=== PATIENT | female | born 1990 | race Caucasian/White ===

== ENCOUNTER 2017-11-10 11:21 | Emergency (ER) | payer OTHER ==
[2017-11-10] MEDS: IBUPROFEN 800 MG TAB PO (11:42)
== END 2017-11-10 13:17 | disposition home or self-care (01) ==
LOC: M ED 11:21
DX: S80.12XA Contusion of left lower leg, initial encounter (principal); W21.07XA Struck by softball, initial encounter; Y92.830 Public park as the place of occurrence of the external cause
CPT/HCPCS: 73590

== ENCOUNTER 2018-03-19 18:46 | Emergency (ER) | payer OTHER | END 2018-03-19 21:10 | disposition home or self-care (01) | LOC: M ED 18:46 | DX: Z04.1 Encounter for examination and observation following transport accident (principal); V43.52XA Car driver injured in collision with other type car in traffic accident, initial encounter; Y92.410 Unspecified street and highway as the place of occurrence of the external cause; Z98.84 Bariatric surgery status; Z3A.01 Less than 8 weeks gestation of pregnancy; Z79.899 Other long term (current) drug therapy | CPT/HCPCS: 76801 ==

== ENCOUNTER → 2018-04-18 | Outpatient (CLI) | payer OTHER ==
[2018-04-18 17:51] LABS: BASO % 0.4 % (0.0-1.0); EOS # 0.1 10^3/uL (0.0-0.50); HEMATOCRIT 34.8 % (36.0-47.0); HEMOGLOBIN 11.3 g/dl (12.0-15.5); IMMATURE GRANULOCYTE % 0.3 % (0-3.0); LYMPH % 18.2 % (24.0-44.0); MEAN CORPUSCULAR HEMOGLOBIN 27.6 pg (27.0-33.0); MEAN CORPUSCULAR HGB CONC 32.5 g/dl (32.0-36.5); MEAN CORPUSCULAR VOLUME 85.1 fl (80.0-96.0); MONO # 0.6 10^3/uL (0.0-0.8); MONO % 5.6 % (0.0-5.0); NEUTROPHILS # 8.2 10^3/uL (1.8-7.7); NEUTROPHILS % 74.5 % (36.0-66.0); PLATELET COUNT, AUTOMATED 294 10^3/uL (150-450); RED BLOOD COUNT 4.09 10^6/uL (4.00-5.40); RED CELL DISTRIBUTION WIDTH 14.1 % (11.5-14.5)
[2018-04-18 22:04] LABS: CHLAMYDIA DNA AMPLIFICATION NEGATIVE (NEGATIVE); GC DNA AMPLIFICATION NEGATIVE (NEGATIVE)
[2018-04-19 10:28] LABS: HBsAg Prenatal NEGATIVE (NEGATIVE); HIV 1&2 SCREEN CENTAUR NEGATIVE (NEGATIVE); RUBELLA IgG QUALITATIVE IMMUNE (IMMUNE)
[2018-04-19 10:28] LABS: HEPATITIS C VIRUS ABY INDEX 0.1 INDEX (<0.8)
== END ==
LOC: M SMT 15:45
DX: Z36.89 Encounter for other specified antenatal screening (principal)
CPT/HCPCS: 86762

== ENCOUNTER → 2018-06-14 | Outpatient (CLI) | payer OTHER ==
[~2018-06-14] MED LIST: CALCTAB89 PO; IBUP80TA PO; PRENCHW PO; VITA500T53 PO
--- NOTE | 2018-06-14 20:42 | REP ---
Obstetric sonography: History: Supervision of for anatomy. Findings: Scanning through the gravid uterus demonstrates a viable single intrauterine gestation in a variable lie. motion is observed and heart rate is recorder 139 beats per minute. A posterior grade 1 placenta is seen without evidence of previa or abruption. Amniotic fluid is subjectively normal. Closed cervical length measures 4.2 cm. No extrauterine abnormality is observed. There has been appropriate interval growth. No anomaly is seen. The following anatomic structures are identified and felt to be sonographically unremarkable: cranium, choroid plexus, cavum, cerebellum posterior fossa, face and profile, lungs, four-chamber heart with left and right ventricular outflow tract views, diaphragm, left-sided stomach, abdominal wall cord insertion, three-vessel umbilical cord, kidneys and bladder, spine, upper and lower extremities. Biometry chart: BPD 3.7 cm 17 weeks 2 days Head circumference 15.2 cm 18 weeks 2 days Abdominal circumference 13.1 cm 18 weeks 4 days Femur length 2.8 cm 18 weeks 4 days humeral length 2.7 cm 18 weeks 4 days HC/AC ratio normal 1.16 cephalic index 0.64 (0.70-0.86), estimated weight 244 grams, 0 pounds 8 ounces, 20th percentile for 19 weeks 0 days. Impression: Viable single intrauterine gestation of 18 weeks 2 days by today's composite criteria. Expected gestational age estimate based on prior sonography is 19 weeks 0 days. ELIDA by prior sonography November 08, 2018. anatomic survey is felt to be complete. Electronically Signed by Gerry Wan MD 06/15/2018 08:15 A
== END ==
LOC: M RAD 15:35
PROVIDERS: ATTEND Advanced Practice Midwife
DX: Z36.9 Encounter for antenatal screening, unspecified (principal); Z3A.18 18 weeks gestation of pregnancy

== ENCOUNTER → 2018-08-08 | Outpatient (CLI) | payer OTHER ==
[2018-08-08 18:50] LABS: HEMATOCRIT 34.6 % (36.0-47.0); MEAN CORPUSCULAR HEMOGLOBIN 28.1 pg (27.0-33.0); MEAN CORPUSCULAR HGB CONC 31.8 g/dl (32.0-36.5); MEAN CORPUSCULAR VOLUME 88.3 fl (80.0-96.0); PLATELET COUNT, AUTOMATED 265 10^3/uL (150-450); RED BLOOD COUNT 3.92 10^6/uL (4.00-5.40); WHITE BLOOD COUNT 11.1 10^3/uL (4.0-10.0)
== END ==
LOC: M SMT 15:03
PROVIDERS: ATTEND Obstetrics & Gynecology
DX: Z36.89 Encounter for other specified antenatal screening (principal)

== ENCOUNTER → 2018-10-11 | Outpatient (REF) | payer OTHER ==
[~2018-10-11] MED LIST changes: +VITA500T17 PO; -VITA500T53 PO
== END ==
LOC: M LAB REF 17:12
PROVIDERS: ATTEND Obstetrics & Gynecology
DX: Z34.83 Encounter for supervision of other normal pregnancy, third trimester (principal); Z3A.00 Weeks of gestation of pregnancy not specified

== ENCOUNTER 2018-10-17 15:19 | Outpatient (CLI) | payer OTHER ==
[~2018-10-17] VITALS: Ht 167.6 cm; Wt 111.6 kg
[2018-10-17 15:36] VITALS: BP 110/69
[2018-10-17 15:45] VITALS: BP 93/59
[2018-10-17] MEDS ORDERED: LR 1,000 ML IV ONE (16:00)
[2018-10-17 16:20] VITALS: BP 100/54
[2018-10-17 16:31] LABS: HEMATOCRIT 32.9 % (36.0-47.0); HEMOGLOBIN 10.5 g/dl (12.0-15.5); MEAN CORPUSCULAR HEMOGLOBIN 26.1 pg (27.0-33.0); MEAN CORPUSCULAR HGB CONC 31.9 g/dl (32.0-36.5); MEAN CORPUSCULAR VOLUME 81.6 fl (80.0-96.0); PLATELET COUNT, AUTOMATED 292 10^3/uL (150-450); RED BLOOD COUNT 4.03 10^6/uL (4.00-5.40); WHITE BLOOD COUNT 13.9 10^3/uL (4.0-10.0)
[2018-10-17 16:41] LABS: APPEARANCE, URINE HAZY (CLEAR); BACTERIA, URINE AUTO 1+ (NEGATIVE); BILIRUBIN, URINE AUTO NEGATIVE (NEGATIVE); BLOOD, URINE BLOOD NEGATIVE (NEGATIVE); COLOR, URINE YELLOW (YELLOW); GLUCOSE, URINE (UA) AUTO NEGATIVE (NEGATIVE); KETONE, URINE AUTO NEGATIVE (NEGATIVE); LEUKOCYTE ESTERASE, URINE AUTO NEGATIVE (NEGATIVE); MUCUS, URINE SMALL (NEGATIVE); NITRITE, URINE AUTO NEGATIVE (NEGATIVE); PROTEIN, URINE AUTO NEGATIVE (NEGATIVE); RBC, URINE AUTO 0 /HPF (0-3); SQUAMOUS EPITHELIAL CELL UR AU 6 /HPF (0-6); UROBILINOGEN, URINE AUTO 0.2 mg/dL (0.0-2.0); WBC, URINE AUTO 0 /HPF (0-3)
[2018-10-17 16:55] LABS: ALBUMIN 2.6 GM/DL (3.2-5.2); ALT/SGPT 15 U/L (12-78); AMYLASE 40 U/L (25-115); BILIRUBIN,TOTAL 0.2 MG/DL (0.2-1.0); BLOOD UREA NITROGEN 12 MG/DL (7-18); CALCIUM LEVEL 8.2 MG/DL (8.5-10.1); CARBON DIOXIDE LEVEL 23 MEQ/L (21-32); CHLORIDE LEVEL 107 MEQ/L (98-107); CREATININE FOR GFR 0.59 MG/DL (0.55-1.30); GLOMERULAR FILTRATION RATE > 60.0 (>60); GLUCOSE, FASTING 78 MG/DL (70-100); LIPASE 162 U/L (73-393); POTASSIUM SERUM 4.2 MEQ/L (3.5-5.1); SODIUM LEVEL 139 MEQ/L (136-145); TOTAL PROTEIN 6.5 GM/DL (6.4-8.2)
[2018-10-17 17:05] VITALS: BP 101/51
[2018-10-17 18:06] VITALS: BP 106/54
[2018-10-17 18:16] VITALS: BP 112/58
--- NOTE | 2018-10-17 18:59 | NUR ---
L&D triage 28-year-old at 36+6 weeks gestation. Presents complaining of shortness of breath and not feeling well. Denies any chest pain, fever/chills. Reports regular movement. Denies vaginal bleeding, loss of fluid, or uterine contractions. course uncomplicated other than mild anemia Obstetric history significant for shoulder dystocia with clavicular fracture at 42 weeks, LGA baby, 10 lbs. 13 oz. PMH: Anemia SH: gastric sleeve Meds: PNV All: Tylenol, Hydrocodone. 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 H: RRR no m/g/r L: CTA b/l no w/c/r/r Abd: soft,nt,nd. FH > EGA Ext: no c/c/e US,owusu: cephalic, MVP 8.2cm A/P: 28yo at 36+6 weeks with mild idiopathic polyhydramnios. -Continue with antepartum testing as outpatient. -Continue Fe supplementation -Recommended IOL at 39 weeks. Scheduled for 11/01/18. -Routine third trimester precautions reviewed -F/u in office as scheduled. Avis Self DO
== END 2018-10-17 18:43 | disposition home or self-care (01) ==
LOC: M LDO 15:19
PROVIDERS: ATTEND Obstetrics & Gynecology
DX: O26.893 Other specified pregnancy related conditions, third trimester (principal); R06.02 Shortness of breath; O40.3XX2 Polyhydramnios, third trimester, fetus 2; Z3A.36 36 weeks gestation of pregnancy
CPT/HCPCS: 59025; 80053; 81001; 82150; 83690; 85027; 87088; 87186; G0378; G0463

== ENCOUNTER 2018-11-01 15:00 | Inpatient (IN) | payer OTHER ==
[~2018-11-01] VITALS: Ht 170.2 cm; Wt 113.0 kg
[2018-11-01] VITALS (17 sets, daily range): BP systolic 117–154; BP diastolic 61–99
[2018-11-01] MEDS ORDERED: miSOPROStol 50 MCG 1/2 TAB (S0191) PO ONE (15:45)
[2018-11-01 16:15] LABS: HEMATOCRIT 31.3 % (36.0-47.0); HEMOGLOBIN 9.9 g/dl (12.0-15.5); MEAN CORPUSCULAR HEMOGLOBIN 25.6 pg (27.0-33.0); MEAN CORPUSCULAR HGB CONC 31.6 g/dl (32.0-36.5); MEAN CORPUSCULAR VOLUME 80.9 fl (80.0-96.0); PLATELET COUNT, AUTOMATED 265 10^3/uL (150-450); RED BLOOD COUNT 3.87 10^6/uL (4.00-5.40); WHITE BLOOD COUNT 10.8 10^3/uL (4.0-10.0)
[2018-11-01] MEDS ORDERED: LR 1,000 ML IV SCH (16:26)
[2018-11-01] MEDS ORDERED: PENICILLIN G POTASSIUM IV 5 MU in D5W MINI-BAG PLUS 100 ML IV STA (16:26)
[2018-11-01] MEDS ORDERED: OXYTOCIN DRIP 30 UNITS in APPROPRIATE DILUENT 1 EA IV SCH (16:30)
--- NOTE | 2018-11-01 18:12 | HPE ---
DATE OF ADMISSION: 11/01/2018 HISTORY OF PRESENT ILLNESS: Patient is a 28-year-old female who is a 2, para 1-0-0-1 at 39 weeks gestation with an estimated delivery date (ELIDA) of 11/08/2018, based off of her first trimester ultrasound. She initiated care in her first trimester with [facility]. Her has been complicated with by a history of having a gastric sleeve, polyhydramnios, and a history of baby born with a shoulder dystocia. Patient presents to labor and delivery for an elective induction of labor related to polyhydramnios. Patient reports occasional contractions. She denies leaking of fluid, vaginal bleeding. Reports active movement. ALLERGIES: VICODIN. CURRENT MEDICATIONS: - vitamins - calcium MEDICAL HISTORY: Varicella as a child. SURGICAL HISTORY: 1. Gastric sleeve. 2. Abscess removal. FAMILY HISTORY: Grandmother with heart disease, thyroid dysfunction and asthma. Grandfather had heart murmur and open heart surgery. SOCIAL HISTORY: Patient is . She denies being a smoker. She denies alcohol or illicit drug use during or prior to . She denies any history of any sexually transmitted infections. PAST PREGNANCIES: In June 2017, patient delivered a live male at 41 weeks and 6 days gestation via spontaneous vaginal delivery, weighing 10 pounds 13 ounces, complicated by a shoulder dystocia. LABORATORIES: Blood type is A positive, with a negative antibody screen. Her hemoglobin, hematocrit and platelet level on 04/18/2018 was 11.3 and 34.8 and platelets at 294. Rubella immune. VDRL is nonreactive. Urine is no growth. Hepatitis B surface antigen is negative. HIV is negative. Hepatitis C is nonreactive. Gonorrhea and chlamydia are both negative. Her hemoglobin and hematocrit on 08/08/2018 was 11 and 24.6 with platelets at 265. Her group B Streptococcus (GBS) is positive. HEART RATE: 130 beats per minute, moderate variability, positive accelerations, no decelerations. Contractions are occasional. VITAL SIGNS: Blood pressure 118/61, heart rate 82, respiratory rate 18, temperature 98.2. VAGINAL EXAMINATION: Cervix 1 cm dilated, 75% effaced. Baby is ballotable and her cervix is posterior, soft, with no show. PHYSICAL ASSESSMENT: GENERAL: Alert and oriented times three. RESPIRATORY: Regular rate with no use of accessory muscles. ABDOMEN: Gravid and nontender to palpation. Fetus is cephalic presentation via Iam's and via vaginal exam. LOWER EXTREMITIES: Generalized edema with no pitting edema. No clonus noted. ASSESSMENT: Intrauterine at 39 weeks gestation, polyhydramnios, Category I FHR tracing, elective induction of labor. PLAN: Admit to labor and delivery. Out of bed ad emely. Clear liquid diet. Saline lock to be started with labs to be obtained per unit protocol. Will plan on inserting a Archipelagos Dumont bulb with 50 mL intrauterine and 40 mL vaginal. Will start Pitocin per order for induction. Anesthesia consult per patient's request. Prior to epidural, start 800 mL intravenous (IV) bolus of lactated Ringer's. Anticipate cervical change and spontaneous vaginal delivery. MTDD
[2018-11-01] MEDS: PENICILLIN G POTASSIUM IV 2.5 MU in APPROPRIATE DILUENT 1 EA IV SCH (21:00)
--- NOTE | 2018-11-01 21:08 | IPNPDOC ---
Obstetrical Progress Note Date of Service November 01, 2018 Subjective Patient reports feeling contractions. Objective Vital Signs Date Time Temp Pulse Resp B/P (MAP) Pulse Ox O2 Delivery O2 Flow Rate FiO2 11/01/18 18:05 98.3 76 18 137/85 (102) Assessment Heart Rate (FHR): 130 Variability: Moderate Accelerations: Positive Decelerations: None Heart Rate Tracing: Category I Tocometer Contractions: Yes Frequency: regular Sterile Vaginal Examination Dilation: 4 cm Effacement (%): other (75) Station: -3 Cervical Consistency: Soft Cervical Position: Middle Postion/Presentation: Cephalic presentation Assessment and Plan Age: 28 : 2 Term: 1 Pre-term: 0 Abortions: 0 Livin EGA at Admission: 39.0 Status: Reassuring Group B Streptococcus: Positive Anticipate: Vaginal Delivery Additional Comments AROM to a large amount of clear fluid. Pitocin is a 2 mu/min. ANILA ALCARAZ CNM November 01, 2018 21:08
[2018-11-01] MEDS ORDERED: FENTANYL 2MCG/ML ROPIVACAINE 0.2% IN 0.9% NACL 100ML IVBAG As Ordered ONE (23:12)
[2018-11-01] MEDS ORDERED: ONDANSETRON 4MG/2ML VIAL (J2405) IV PRN (23:20)
[2018-11-01] MEDS ORDERED: FENTANYL/ROPIVACAINE/NACL BAG 100 ML EPIDURAL SCH (23:20)
[2018-11-01] MEDS ORDERED: LACTATED RINGER'S 1000 ML IV PRN (23:20)
[2018-11-01] MEDS ORDERED: diphenhydrAMINE INJ 50MG/ML VIAL (J1200) IV PRN (23:20)
[2018-11-01] MEDS ORDERED: REFRIGERATOR IV KEYS XX PRN (23:20)
[2018-11-01] MEDS ORDERED: ePHEDrine SULFATE 25 MG/5 ML(5MG/ML) SYRINGE IV PRN (23:20)
[2018-11-01] MEDS ORDERED: NALOXONE INJ 0.4 MG/1 ML VIAL (J2310) IV PRN (23:20)
[2018-11-01] MEDS ORDERED: EPIDURAL/PCA KEYS XX PRN (23:20)
[2018-11-01] MEDS ORDERED: EPIDURAL COMMENT XX SCH (23:20)
[2018-11-02] VITALS (9 sets, daily range): BP systolic 108–141; BP diastolic 55–102
[2018-11-02] MEDS: PENICILLIN G POTASSIUM IV 2.5 MU in APPROPRIATE DILUENT 1 EA IV SCH (01:03)
[2018-11-02] MEDS ORDERED: OXYTOCIN INJ 10 UNITS/ML VIAL (J2590) IM ONE (03:00)
[2018-11-02] MEDS ORDERED: DOCUSATE SODIUM 100 MG CAP PO PRN (03:00)
[2018-11-02] MEDS ORDERED: MEASLES,MUMPS,RUBELLA VACCINE INJ (MMR-II) (90707) SC SCH (03:00)
[2018-11-02] MEDS ORDERED: DIBUCAINE 1% OINTMENT 30GM TOP PRN (03:00)
[2018-11-02] MEDS ORDERED: ACETAMINOPHEN TAB 650MG DOSE (2X325MG) PO PRN (03:00)
[2018-11-02] MEDS ORDERED: METHYLERGONOVINE MALEATE 0.2 MG TAB PO PRN (03:00)
[2018-11-02] MEDS ORDERED: IBUPROFEN 800 MG TAB PO PRN (03:00)
[2018-11-02] MEDS ORDERED: RHOGAM 300 MCG (1500 IU) INJ (J2790) IM SCH (03:00)
[2018-11-02] MEDS ORDERED: IBUPROFEN 600 MG TAB PO PRN (03:00)
[2018-11-02] MEDS ORDERED: ACETAMINOPHEN 500 MG TAB PO PRN (03:00)
[2018-11-02] MEDS: PRENATAL VITAMINS CHEWABLE TABLET PO SCH (09:16)
[2018-11-03 05:56] VITALS: BP 101/55
[2018-11-03] MEDS: PRENATAL VITAMINS CHEWABLE TABLET PO SCH (08:15)
--- NOTE | 2018-11-03 10:23 | NUR ---
Day 1 Status post , uncomplicated Subjective Pain is well controlled. Lochia decreasing and minimal. Voiding spontaneously. Tolerating a regular diet. Ambulating without any assistance. Denies any subjective fever/chills/nausea/vomiting/headache/visual changes/shortness of breath/chest pain. Breast feeding. Desires discharge to home today Objective Vitals: Normotensive, normal heart rate, afebrile, adequate urine output. Heart: regular, rate, and rhythm. no murmurs/gallops/rubs Lungs: clear to auscultation bilaterally, no wheezes/crackles/rales/ronchi Abd: soft, nontender, nondistended, uterine fundus is 2cm below umbilicus and firm Ext: no significant edema, nontender, negative Karla's bilaterally. Assessment/Plan: day 1. Recovering well. Hemodynamically stable, afebrile, good pain control. -Routine care -Discharge to home today if lavatory attendant discharges baby -Routine infectious, fever, pain, and bleeding precautions reviewed Monico Hawley.O., F.A.C.O.G.
[2018-11-03] MEDS ORDERED: IBUP80TA PO (10:45)
--- NOTE | 2018-11-03 21:35 | DN ---
DELIVERY DATE: 11/02/2018 at 0208 STATUS: Delivered by spontaneous vaginal delivery. PROVIDER: Naima Kim CNM, KIARA ANESTHESIA: Epidural. ESTIMATED BLOOD LOSS: 250. FINDINGS: Female, weighing 9 pounds 9 ounces, 4320 grams. scores 9 and 9. Nuchal cord times one, tight, and cord also around the arm. Macrosomia. Polyhydramnios. Patient is a 28-year-old female who is now a 2, para 2-0-0-2 at 39 weeks and 1 day gestation who presented to labor and delivery yesterday, on 11/01/2018, for an induction of labor. The patient received an epidural for pain management. She progressed to fully dilated at 0154 and pushed to a living female in the low occiput anterior (SHIMA) position, restitution to low occiput tranverse (LOT). The nuchal cord was noted. The anterior shoulder delivered with ease, and the corpus immediately followed. The baby was placed on the maternal abdomen skin to skin, active and crying with stimulation. The cord was clamped times two after 3 minutes and cut by the patient's Clinical Laboratory Assistant. The placenta delivered spontaneously and intact at 0219. Uterine hemostasis was achieved via intramuscular (IM) Pitocin 10 units, due to patient's intravenous (IV) site infiltrating, and fundal massage. The vagina, perineum, and cervix were all inspected and found to be intact. The mother plans to breast-feed, and she is naming her daughter Leon. Both mother and baby are in stable condition. All counts of instruments and sponges are correct.
== END 2018-11-03 13:45 | disposition home or self-care (01) | DRG 807 ==
LOC: M LDI 15:00 → M OBS 11-02 05:42
PROVIDERS: ADMIT Advanced Practice Midwife; ATTEND Advanced Practice Midwife
PROC: 3E0DXGC Introduction of Other Therapeutic Substance into Mouth and Pharynx, External Approach (ICD-10-PCS; 2018-11-01)
PROC: 10E0XZZ Delivery of Products of Conception, External Approach (ICD-10-PCS; principal; 2018-11-02)
DX: O40.3XX0 Polyhydramnios, third trimester, not applicable or unspecified (principal); Z37.0 Single live birth; Z3A.39 39 weeks gestation of pregnancy

== ENCOUNTER → 2019-02-20 | Outpatient (REF) | payer OTHER | LOC: M LAB REF 13:23 | PROVIDERS: ATTEND Advanced Practice Midwife | DX: Z12.4 Encounter for screening for malignant neoplasm of cervix (principal) ==

== ENCOUNTER → 2019-06-02 | Outpatient (CLI) | payer OTHER ==
[2019-06-02 18:50] LABS: BASO % 0.6 % (0.0-1.0); EOS # 0.2 10^3/uL (0.0-0.5); EOS % 2.3 % (0.0-3.0); HEMATOCRIT 37.4 % (36.0-47.0); HEMOGLOBIN 11.6 g/dl (12.0-15.5); LYMPH # 1.9 10^3/uL (1.5-5.0); LYMPH % 26.9 % (24.0-44.0); MEAN CORPUSCULAR HEMOGLOBIN 25.5 pg (27.0-33.0); MEAN CORPUSCULAR VOLUME 82.2 fl (80.0-96.0); MONO # 0.5 10^3/uL (0.0-0.8); MONO % 7.3 % (0.0-5.0); NEUTROPHILS # 4.4 10^3/uL (1.5-8.5); NEUTROPHILS % 62.6 % (36.0-66.0); PLATELET COUNT, AUTOMATED 314 10^3/uL (150-450); RED BLOOD COUNT 4.55 10^6/uL (4.00-5.40); WHITE BLOOD COUNT 7.1 10^3/uL (4.0-10.0)
[2019-06-02 20:31] LABS: CHLAMYDIA DNA AMPLIFICATION NEGATIVE (NEGATIVE); GC DNA AMPLIFICATION NEGATIVE (NEGATIVE)
[2019-06-03 10:35] LABS: HIV 1&2 SCREEN CENTAUR NEGATIVE (NEGATIVE); RUBELLA IgG QUALITATIVE IMMUNE (IMMUNE)
[2019-06-06 10:14] LABS: HEPATITIS C VIRUS ABY INDEX 0.2 INDEX (<0.8)
== END ==
LOC: M PLALAB 14:47
PROVIDERS: ATTEND Obstetrics & Gynecology
DX: Z34.91 Encounter for supervision of normal pregnancy, unspecified, first trimester (principal); Z3A.00 Weeks of gestation of pregnancy not specified

== ENCOUNTER → 2019-08-06 | Outpatient (CLI) | payer OTHER ==
--- NOTE | 2019-08-06 17:56 | REP ---
Obstetric sonography: History: Supervision of . Findings: Scanning through the gravid uterus demonstrates a viable single intrauterine gestation in a variable lie. motion is observed and heart rate is recorded at 152 beats per minute. An anterior grade 1 placenta is seen without evidence of previa or abruption. Amniotic fluid is subjectively normal. Closed cervical length is 3.1 cm. No extrauterine abnormalities observed. No anomaly is seen. Four-chamber heart views less than optimally seen due to early gestational age and position. The following additional anatomic structures are identified and felt to be sonographically unremarkable today: cranium, choroid plexus, cavum, cerebellum and posterior fossa, nuchal fold, face in profile, left and right ventricular outflow tract views, diaphragm, left-sided stomach, abdominal wall cord insertion, three-vessel cord, kidneys and bladder, spine, upper and lower extremities. Biometry chart: BPD 3.6 cm = 17 weeks 0 days HC 13.8 cm = 17 weeks 2 days AC 12.0 cm = 17 weeks 5 days FL 2.5 cm = 17 weeks 4 days HL 2.4 cm = 17 weeks 3 days HC/AC ratio normal 1.16. Cephalic index normal 0.71. Estimated weight 199 grams, 0 pounds 7 ounces, 53rd percentile for 17 weeks 3 days. Impression: Viable single intrauterine gestation at 17 weeks 3 days by today's composite sonographic criteria. ELIDA by today's sonography January 11, 2020. Four-chamber heart views less than optimally achieved. anatomic survey is otherwise complete.
== END ==
LOC: M WHC 14:59
PROVIDERS: ATTEND Advanced Practice Midwife
DX: Z34.92 Encounter for supervision of normal pregnancy, unspecified, second trimester (principal); Z3A.17 17 weeks gestation of pregnancy

== ENCOUNTER → 2019-09-11 | Outpatient (CLI) | payer OTHER ==
--- NOTE | 2019-09-11 18:57 | REP ---
Obstetric sonography: History: Supervision of , follow-up anatomy. Comparison study August 06, 2019. Findings: Scanning through the gravid uterus demonstrates a single living intrauterine gestation in a cephalic lie. motion is observed and heart rate is recorded at 146 beats per minute. An anterior placenta is seen grade 1 without evidence of previa or abruption. Amniotic fluid is subjectively normal. Closed cervical length is 3.5 cm. No extrauterine abnormalities observed. There has been appropriate interval growth. Exam quality inhibited to some degree by maternal body habitus. Four-chamber heart visualization is again less than optimal due to position. The following additional anatomic structures were again identified and felt to be unremarkable: cranium, choroid plexus, cerebellum and posterior fossa, nuchal fold face and profile, left and right ventricular cardiac outflow tract views, diaphragm, left-sided stomach, abdominal wall cord insertion, three-vessel cord, kidneys and bladder, spine, lower extremities. Biometry chart: BPD 4.9 cm = 20 weeks 5 days HC 19.8 cm = 22 weeks 0 days AC 18.8 cm = 23 weeks 4 days FL 3.8 cm = 22 weeks 0 days HC/AC ratio normal 1.06. Cephalic index normal 0.65. Estimated weight 529 grams, 1 pound 2 ounces, 52nd percentile for 22 weeks 4 days. Impression: Viable single intrauterine gestation at 21 weeks 6 days by today's composite criteria. Expected gestational age estimate based on prior sonography is 22 weeks 4 days. ELIDA by prior sonography January 11, 2020. Four-chamber heart view is less than optimally seen again due to position.
== END ==
LOC: M WHC 14:34
PROVIDERS: ATTEND Advanced Practice Midwife
DX: Z34.92 Encounter for supervision of normal pregnancy, unspecified, second trimester (principal)

== ENCOUNTER → 2019-10-01 | Outpatient (REF) | payer OTHER ==
[2019-10-01 15:11] LABS: HEMATOCRIT 33.3 % (36.0-47.0); HEMOGLOBIN 10.7 g/dl (12.0-15.5); MEAN CORPUSCULAR HEMOGLOBIN 26.1 pg (27.0-33.0); MEAN CORPUSCULAR HGB CONC 32.1 g/dl (32.0-36.5); MEAN CORPUSCULAR VOLUME 81.2 fl (80.0-96.0); PLATELET COUNT, AUTOMATED 295 10^3/uL (150-450); WHITE BLOOD COUNT 12.2 10^3/uL (4.0-10.0)
== END ==
LOC: M PLALAB 14:25
PROVIDERS: ATTEND Advanced Practice Midwife
DX: Z34.92 Encounter for supervision of normal pregnancy, unspecified, second trimester (principal)

== ENCOUNTER → 2019-10-09 | Outpatient (CLI) | payer OTHER ==
--- NOTE | 2019-10-09 18:59 | REP ---
Clinical: Anatomical evaluation. Comparison: 09/11/2019 . Findings: Examination demonstrates a single live intrauterine in cephalic presentation. motion is identified by technologist. Placenta is noted anterior and grade I without evidence for placenta previa or abruption. Amniotic fluid volume is normal. Cervix measures 3.7 cm in length and appears closed. No evidence for nuchal cord. Gestational age by LMP 26 weeks 4 days with ELIDA 01/11/2020 . Gestational age by current measurements 26 weeks 2 days with ELIDA 01/13/2020 . FHR equals 140 beats per minute. Estimated weight 954 grams ( 44th percentile). Anatomical assessment demonstrates normal structures including cranium, choroid plexus, cavum, cerebellum/posterior fossa, facial features, lungs, four-chamber heart/ventricular outflow tracts, diaphragm, stomach, three-vessel cord, kidneys/bladder. Impression: Single live intrauterine in cephalic presentation demonstrating appropriate estimated weight and growth. In conjunction with prior examination anatomical assessment is complete and normal.
== END ==
LOC: M WHC 09:04
PROVIDERS: ATTEND Advanced Practice Midwife
DX: Z34.92 Encounter for supervision of normal pregnancy, unspecified, second trimester (principal)

== ENCOUNTER → 2019-10-31 | Outpatient (REF) | payer OTHER | LOC: M PLALAB 10:07 | PROVIDERS: ATTEND Advanced Practice Midwife | DX: O99.843 Bariatric surgery status complicating pregnancy, third trimester (principal); Z53.9 Procedure and treatment not carried out, unspecified reason ==

== ENCOUNTER → 2019-11-19 | Outpatient (CLI) | payer OTHER ==
--- NOTE | 2019-11-19 16:09 | REP ---
Clinical: Growth evaluation. History of gestational diabetes Comparison: 10/09/2019 . Findings: Examination demonstrates a single live intrauterine in cephalic presentation. motion is identified by technologist. Placenta is noted anterior and grade I without evidence for placenta previa or abruption. Amniotic fluid volume is normal. Cervix measures 4.2 cm in length and appears closed. No evidence for nuchal cord. Gestational age by LMP 32 weeks 3 days with ELIDA 01/11/2020 . Gestational age by current measurements 33 weeks 0 days with ELIDA 01/07/2020 . FHR equals 130 beats per minute. BPD 7.9 cm 31 weeks 4 days HC 30.8 cm 34 weeks 2 days AC 30.4 cm 34 weeks 2 days FL 6.2 cm 32 weeks 2 days HL 5.8 cm 33 weeks 4 days HC/AC ratio 1.01 Estimated weight 2256 grams ( 71st percentile). Impression: Single live advanced gestation in cephalic presentation demonstrating appropriate interval growth and estimated weight. No gross abnormalities are identified.
== END ==
LOC: M WHC 14:38
PROVIDERS: ATTEND Advanced Practice Midwife
DX: O24.419 Gestational diabetes mellitus in pregnancy, unspecified control (principal)

== ENCOUNTER → 2019-12-08 | Outpatient (CLI) | payer OTHER ==
--- NOTE | 2019-12-08 15:10 | REP ---
REASON: Gestational diabetes. Multiple ultrasonographic images of the gravid uterus show a single living intrauterine gestation in the cephalic presentation. Doppler interrogation of the heart shows a heart rate of 132 beats per minute. The placenta is anterior and not low-lying. The cervix measures 3.1 cm in length and is closed. The subjective amniotic fluid volume is within normal limits. BPD 8.7 cm = 34 weeks 6 days HC 32.6 cm = 36 weeks 6 days AC 31.90 cm = 35 weeks 6 days FL 6.9 cm = 35 weeks 2 days Estimated weight is 2743 grams, which is at the 59th percentile for a 50-whhb-0-day gestational age. The calculated amniotic fluid index is 16.4 with an expected range of 7.9 to 24.9. IMPRESSION: Single living intrauterine gestation as described above with an estimated gestational age of 35 weeks 3 days via composite criteria and an estimated date of delivery of 01/09/2020 by today's exam.
== END ==
LOC: M WHC 10:48
PROVIDERS: ATTEND Advanced Practice Midwife
DX: O24.419 Gestational diabetes mellitus in pregnancy, unspecified control (principal); Z3A.35 35 weeks gestation of pregnancy

== ENCOUNTER → 2019-12-09 | Outpatient (REF) | payer OTHER | LOC: M SFHCWAGY 10:18 | PROVIDERS: ATTEND Advanced Practice Midwife | DX: O24.419 Gestational diabetes mellitus in pregnancy, unspecified control (principal) ==

== ENCOUNTER 2019-12-29 10:45 | Inpatient (IN) | payer OTHER ==
[2019-12-29] MEDS ORDERED: miSOPROStol 50 MCG 1/2 TAB (S0191) ONE ×2 (11:34→15:49)
[2019-12-29] MEDS ORDERED: metFORMIN (GLUCOPHAGE) 500 MG TAB ONE (13:00)
[2019-12-29] MEDS ORDERED: CALCIUM CARBONATE 500 MG CHEW U/D ONE (20:00)
[2019-12-29] MEDS ORDERED: OXYTOCIN 30 UNITS IN 0.9% NaCl 500ML IV BAG (J2590) ONE (20:00)
[2019-12-29] MEDS ORDERED: PENICILLIN G POTASSIUM 5 MU VIAL ONE (22:27)
[2019-12-30] MEDS ORDERED: FENTANYL 2MCG/ML ROPIVACAINE 0.2% IN 0.9% NACL 100ML IVBAG ONE (00:35)
[2019-12-30] MEDS ORDERED: PENICILLIN 100,000 U/ML SYRINGE 2.5MU ONE ×2 (03:04→07:04)
[2019-12-30] MEDS ORDERED: ePHEDrine SULFATE 25 MG/5 ML(5MG/ML) SYRINGE ONE (03:04)
[2019-12-30] MEDS ORDERED: DOCUSATE SODIUM 100 MG CAP ONE (21:24)
[2019-12-31] MEDS ORDERED: IBUPROFEN 800 MG TAB ONE ×2 (05:30→09:45)
[2019-12-31] MEDS ORDERED: DOCUSATE SODIUM 100 MG CAP ONE (09:36)
== END 2019-12-31 18:30 | disposition home or self-care (01) | DRG 807 ==
LOC: M OBS 10:45
PROVIDERS: ADMIT Advanced Practice Midwife; ATTEND Advanced Practice Midwife
PROC: 10907ZC Drainage of Amniotic Fluid, Therapeutic from Products of Conception, Via Natural or Artificial Opening (ICD-10-PCS; 2019-12-29)
PROC: 3E033VJ Introduction of Other Hormone into Peripheral Vein, Percutaneous Approach (ICD-10-PCS; 2019-12-29)
PROC: 10E0XZZ Delivery of Products of Conception, External Approach (ICD-10-PCS; principal; 2019-12-30)
DX: O40.9XX0 Polyhydramnios, unspecified trimester, not applicable or unspecified (principal); Z37.0 Single live birth; Z3A.38 38 weeks gestation of pregnancy; O99.824 Streptococcus B carrier state complicating childbirth

== ENCOUNTER → 2020-02-18 | Outpatient (CLI) | payer OTHER ==
[2020-02-18 14:15] LABS: HEMOGLOBIN A1c 5.7 %
== END ==
LOC: M PLALAB 11:29
PROVIDERS: ATTEND Advanced Practice Midwife
DX: Z09 Encounter for follow-up examination after completed treatment for conditions other than malignant neoplasm (principal); Z86.32 Personal history of gestational diabetes
CPT/HCPCS: 36415; 83036; G0463